=== PATIENT | female | born 1990 | race Caucasian/White ===

== ENCOUNTER 2017-10-27 19:18 | Emergency (ER) | payer OTHER ==
[2017-10-27] MEDS ORDERED: Bacitracin/Neomycin/Polymyxin B Oint 0.9 GM U/D Packet ONE (19:29)
[2017-10-27] MEDS ORDERED: Lidocaine 1% 20 ML MDV ONE (19:29)
[2017-10-27] MEDS ORDERED: Bacitracin/Neomycin/Polymyxin B Oint 0.9 GM U/D Packet TOP ONE (19:47)
--- NOTE | 2017-10-27 19:49 | EDM.PDOC ---
ED HPI GENERAL MEDICAL PROBLEM - General Chief Complaint: Upper Extremity Injury/Pain Stated Complaint: FISH HOOK IN FINGER Time Seen by Provider: 10/27/17 19:21 Source of Information: Reports: Patient History Limitations: Reports: No Limitations - History of Present Illness INITIAL COMMENTS - FREE TEXT/NARRATIVE: Patient is a 27-year-old female who presents to the emergency department this evening with a complaint of fishhook in right index finger. Patient states incident happened just prior to arrival. Patient denies any other injury, and also states that she is up-to-date with tetanus. Onset: Today Onset Date: 10/27/17 Onset Time: 18:30 Location: Reports: Upper Extremity, Right Severity: Mild Improves with: Reports: None Worsens with: Reports: None Context: Reports: Trauma (Azure to right hand) Associated Symptoms: Reports: No Other Symptoms Right 2-Index finger Pain Score (Numeric/FACES): 2 - Related Data Allergies Allergy/AdvReac Type Severity Reaction Status Date / Time No Known Drug Allergies Allergy Cannot Verified 10/27/17 19:23 Remember Home Meds: Home Meds Etonogestrel [Nexplanon] 68 mg IMPLANT ASDIRECTED 10/27/17 [History] Past Medical History HEENT History: Reports: None - Infectious Disease History Infectious Disease History: Reports: None - Past Surgical History HEENT Surgical History: Reports: Oral Surgery Social & Family History - Tobacco Use Smoking Status *Q: Never Smoker - Caffeine Use Caffeine Use: Reports: Coffee, Soda Other Caffeine Use: REGULAR - Recreational Drug Use Recreational Drug Use: No Review of Systems - Review of Systems Review Of Systems: ROS reveals no pertinent complaints other than HPI. Constitutional: Reports: No Symptoms Eyes: Reports: No Symptoms Ears: Reports: No Symptoms Nose: Reports: No Symptoms Mouth/Throat: Reports: No Symptoms Respiratory: Reports: No Symptoms Cardiovascular: Reports: No Symptoms GI/Abdominal: Reports: No Symptoms Genitourinary: Reports: No Symptoms Musculoskeletal: Reports: Hand Pain (Azure to right index finger) Skin: Reports: No Symptoms Neurological: Reports: No Symptoms Psychiatric: Reports: No Symptoms ED EXAM, GENERAL - Physical Exam Exam: See Below Exam Limited By: No Limitations General Appearance: Alert, WD/WN, No Apparent Distress Throat/Mouth: Normal Inspection, Normal Oropharynx, No Airway Compromise Head: Atraumatic, Normocephalic Respiratory/Chest: No Respiratory Distress Extremities: Other (Azure on distal aspect of right index finger.) Neurological: Alert, Oriented, Normal Cognition Psychiatric: Normal Affect, Normal Mood Skin Exam: Warm, Dry, Intact, Normal Color, No Rash ED TRAUMA EXTREMITY PROCEDURES - Foreign Body Removal Indication:: Azure to distal aspect of right index finger Consent Obtained: Patient Performing Doctor:: Mark Cho Foreign Body Other Location Comment:: Azure to distal aspect of right index finger Anesthesia Type: Local Findings:: Tolerated procedure well Complications:: No Comments:: Removed with hemostats. Course - Vital Signs Last Recorded V/S: Last Vital Signs Temp 98.5 F 10/27/17 19:20 Pulse 70 10/27/17 19:20 Resp 18 10/27/17 19:20 BP 122/63 10/27/17 19:20 Pulse Ox 97 10/27/17 19:20 - Orders/Labs/Meds Meds: Medications Discontinued Medications Generic Name Dose Route Start Last Admin Trade Name Vanceq PRN Reason Stop Dose Admin Lidocaine HCl Confirm 10/27/17 19:29 Xylocaine 1% Administered 10/27/17 19:30 Dose 20 ml .ROUTE .STK-MED ONE Neomycin/Polymyxin/Bacitracin Confirm 10/27/17 19:29 Triple Antibiotic Oint Administered 10/27/17 19:30 Dose 1 each .ROUTE .STK-MED ONE - Re-Assessments/Exams Free Text/Narrative Re-Assessment/Exam: 10/27/17 19:47 Patient afebrile, nontoxic appearing, vital signs stable. Azure removed with hemostats. Patient tolerated procedure well. Patient will be followed by PCP. Departure - Departure Time of Disposition: 19:47 Disposition: Home, Self-Care 01 Condition: Good Clinical Impression: Azure injury to finger Qualifiers: Encounter type: initial encounter Laterality: right Qualified Code(s): S69.91XA - Unspecified injury of right wrist, hand and finger(s), initial encounter - Discharge Information Instructions: Puncture Wound, [id number] Additional Instructions: Follow-up with the primary doctor in 2-3 days. Return to emergency room sooner if symptoms continue or worsen.
[2017-10-27] MEDS ORDERED: Lidocaine 1% 50 ML MDV INJECT SCH (20:00)
== END 2017-10-27 19:50 | disposition home or self-care (01) ==
LOC: KA.ED 19:18
DX: S60.450A Superficial foreign body of right index finger, initial encounter (principal); W45.8XXA Other foreign body or object entering through skin, initial encounter
CPT/HCPCS: 99282